=== PATIENT | female | born 1985 | race Caucasian/White ===

== ENCOUNTER 2019-09-22 12:39 | Emergency (ER) | payer BC, SELFPAY ==
[2019-09-22] MEDS ORDERED: ONDANSETRON 4 MG/2 ML VIAL ONE ×2 (13:30→15:47)
[2019-09-22] MEDS ORDERED: NA CHLORIDE 0.9% 1,000 ML ONE (13:30)
[2019-09-22] MEDS ORDERED: MORPHINE 4 MG/ML SYR ONE (13:30)
[2019-09-22 13:47] LABS: Absolute Lymphocytes (CBC) 1.2 K/uL (0.7-4.9); Basophils % 0.5 % (0-1.3); Hematocrit 41.6 % (36.0-45.0); MPV 9.7 fL (7.6-11.3); RBC Red Blood Cell Count 4.33 M/uL (3.86-4.86)
[2019-09-22 14:05] LABS: Albumin 3.9 g/dL (3.4-5.0); Bilirubin Direct 0.1 mg/dL (0-0.2); Bilirubin Total 0.3 mg/dL (0.2-1.0); Potassium 3.6 mmol/L (3.5-5.1); Protein, Total 7.5 g/dL (6.4-8.2)
--- NOTE | 2019-09-22 16:08 | RAD REPORT ---
EXAM DESCRIPTION: US - Abdomen Exam Limited - 09/22/2019 2:30 pm CLINICAL HISTORY: ABD PAIN COMPARISON: CTSTONE PROTOCOL dated 03/31/2013 FINDINGS: No gallstones, sludge or other abnormalities within the gallbladder lumen. There is no wal l thickening or pericholecystic fluid. No common duct stone or biliary tree dilatation identified. IMPRESSION: Normal gallbladder and biliary tree ultrasound.
[2019-09-22 16:35] LABS: Urine Blood NEGATIVE (NEG); Urine Glucose NEGATIVE (NEG); Urine Protein NEGATIVE (NEG); Urine Specific Gravity 1.025 (1.005-1.030)
--- NOTE | 2019-09-22 16:45 | RAD REPORT ---
EXAM DESCRIPTION: CT - Abdomen Pelvis W Contrast - 09/22/2019 4:19 pm CLINICAL HISTORY: ABD PAIN, vomiting, hematemesis COMPARISON: None. TECHNIQUE: Biphasic, helical CT imaging of the abdomen and pelvis was performed following 100 ml non -ionic IV contrast. No oral contrast given. All CT scans are performed using dose optimization technique as appropriate and may include automated exposure control or mA/KV adjustment according to patient size. FINDINGS: No suspicious findings in the lung bases. Liver shows diffuse fatty infiltration. No focal liver lesions seen. Spleen and pancreas without susp icious finding. Gallbladder and biliary tree are also without suspicious finding. Symmetric renal function is seen with no hydronephrosis or suspicious renal mass. No pyelonephritis o r acute parenchymal process. No bladder abnormalities. No adrenal abnormalities. Uterus and ovaries s how no suspicious findings. No gastric dilatation or gastric wall thickening. No small bowel abnormality. The appendix is normal. No acute colon process seen. No free air or pneumatosis. Trace free fluid is seen in the dependent portion of the pelvis. This i s within physiologic limits. No hernia, mass or bulky lymphadenopathy. No suspicious bony findings. IMPRESSION: Contrast enhanced CT abdomen and pelvis imaging shows no acute finding. Fatty infiltration of the liver.
--- NOTE | 2019-09-22 16:59 | ER ---
Nurse's Notes [facility] [place] Name: Clarissa Prince Age: 34 yrs Sex: Female : 1985 Arrival Date: 09/22/2019 Time: 12:40 Bed 3 Private MD: Diagnosis: Upper abdominal pain, unspecified;Nausea and vomiting Presentation: 09/22 12:54 Presenting complaint: Patient states: "At first it was regular throw up and then it was sv a mouth full of blood. I've always had stomach pain (points to the RUQ)". Transition of care: patient was not received from another setting of care. Onset of symptoms was September 22, 2019. Risk Assessment: Do you want to hurt yourself or someone else? Patient reports no desire to harm self or others. Care prior to arrival: None. 12:54 Method Of Arrival: Ambulatory sv 12:54 Acuity: ANNE-MARIE 2 sv 13:30 Initial Sepsis Screen: Does the patient meet any 2 criteria? No. Patient's initial hb sepsis screen is negative. Does the patient have a suspected source of infection? No. Patient's initial sepsis screen is negative. HAT MENDER: 15:49 LMP 09/04/2019 hb Historical: - Allergies: 12:55 No Known Allergies; sv - PMHx: 12:55 None; sv - PSHx: 12:55 None; sv - Immunization history:: Flu vaccine is not up to date. - Social history:: Smoking status: Patient/guardian denies using tobacco, Patient uses alcohol, on a daily basis. 1-2 drinks of liquor or beer. - Ebola Screening: : No symptoms or risks identified at this time. Screenin:52 Abuse screen: Denies threats or abuse. Denies injuries from another. Nutritional hb screening: No deficits noted. Tuberculosis screening: No symptoms or risk factors identified. Fall Risk None identified. Assessment: 13:45 General: Appears in no apparent distress. Behavior is calm, cooperative. Pain: Pain hb currently is 6 out of 10 on a pain scale. Neuro: Level of Consciousness is awake, alert, obeys commands, Oriented to person, place, time, situation. Cardiovascular: Capillary refill < 3 seconds Patient's skin is warm and dry. Respiratory: Airway is patent Respiratory effort is even, unlabored, Respiratory pattern is regular, symmetrical, Breath sounds are clear bilaterally. GI: Abdomen is non-distended, Bowel sounds present X 4 quads. Abd is soft and non tender X 4 quads. Reports upper abdominal pain, nausea, vomiting. : No signs and/or symptoms were reported regarding the genitourinary system. EENT: No signs and/or symptoms were reported regarding the EENT system. Derm: Skin is pink, warm \\T\\ dry. Musculoskeletal: No signs and/or symptoms reported regarding the musculoskeletal system. 14:41 Reassessment: Patient appears in no apparent distress at this time. Patient and/or hb family updated on plan of care and expected duration. Pain level reassessed. Patient is alert, oriented x 3, equal unlabored respirations, skin warm/dry/pink. 15:35 Reassessment: Patient appears in no apparent distress at this time. Patient and/or hb family updated on plan of care and expected duration. Pain level reassessed. Patient is alert, oriented x 3, equal unlabored respirations, skin warm/dry/pink. 15:48 Reassessment: Pt c/o nausea, requesting medication. OVEN DRIER TENDER Charlotte notified, repeat Zofran hb administered as ordered. 16:30 Reassessment: Patient appears in no apparent distress at this time. Patient and/or hb family updated on plan of care and expected duration. Pain level reassessed. Patient is alert, oriented x 3, equal unlabored respirations, skin warm/dry/pink. Vital Signs: 12:56 BP 165 / 97; Pulse 117; Resp 18; Temp 96.5; Pulse Ox 100% ; Weight 83.91 kg; Height 5 sv ft. 1 in. (154.94 cm); Pain 0/10; 14:41 BP 150 / 105; Pulse 102; Resp 18; Pulse Ox 99% on R/A; Pain 3/10; hb 16:57 BP 150 / 93; Pulse 92; Resp 17; Pulse Ox 99% on R/A; hb 12:56 Body Mass Index 34.96 (83.91 kg, 154.94 cm) sv ED Course: 12:40 Patient arrived in ED. as 12:41 Charlotte Cortez [facility]-C [facility]. kb 12:41 Abena Barreto MD is Attending Physician. kb 12:55 Triage completed. sv 12:56 Arm band placed on. sv 13:21 Stewart, Marlene, RN is Primary Nurse. hb 13:30 Patient has correct armband on for positive identification. Placed in gown. Bed in low hb position. Call light in reach. Side rails up X 1. 13:38 Missed attempt(s): 20 gauge 22 gauge in right antecubital area. Bleeding controlled, hb band aid applied, catheter tip intact. 13:40 Initial lab(s) drawn, by al, sent to lab. hb 13:49 Inserted saline lock: 20 gauge in right antecubital area, using aseptic technique. em1 14:31 US Abdomen Limited In Process Unspecified. EDMS 16:[address] via wheelchair. nj 16:18 CT completed. Patient tolerated procedure well. Patient moved back from CT. nj 16:19 CT Abd/Pelvis - IV Contrast Only In Process Unspecified. EDMS 17:44 No provider procedures requiring assistance completed. IV discontinued, intact, hb bleeding controlled, No redness/swelling at site. Pressure dressing applied. Administered Medications: 13:50 Drug: Zofran 4 mg Route: IVP; Site: right antecubital; hb 14:43 Follow up: Response: No adverse reaction hb 13:51 Drug: morphine 4 mg Route: IVP; Site: right antecubital; hb 14:43 Follow up: Response: No adverse reaction hb 13:52 Drug: NS 0.9% 1000 ml Route: IV; Rate: 1000 ml; Site: right antecubital; hb 15:05 Follow up: Response: No adverse reaction; IV Status: Completed infusion; IV Intake: hb 100ml 15:47 Drug: Zofran 4 mg Route: IVP; Site: right antecubital; hb Intake: 15:05 IV: 100ml; Total: 100ml. hb Outcome: 16:58 Discharge ordered by . kb 17:44 Discharged to home ambulatory, with family. hb 17:44 Condition: stable 17:44 Discharge instructions given to patient, family, Instructed on discharge instructions, follow up and referral plans. medication usage, Demonstrated understanding of instructions, follow-up care, medications, Prescriptions given X 3. 17:44 Patient left the ED. hb Signatures: Dispatcher [employer] EDNE Charlotte Cortez, Renate Gregorio RN RN sv Martinez, Amelia as Martinez, Eric em1 Marlene Stewart, SHAYE RN Benedicto Hopkins Corrections: (The following items were deleted from the chart) 12:57 12:54 Acuity: ANNE-MARIE 3 sv sv 16:11 16:11 Patient moved to [place] via wheelchair. dong umana
--- NOTE | 2019-09-22 16:59 | EDPHYS ---
Physician Documentation [facility] [place], [place] Name: Clarissa Prince Age: 34 yrs Sex: Female : 1985 Arrival Date: 09/22/2019 Time: 12:40 Bed 3 Private MD: ED Physician Abena Barreto HPI: 09/22 15:00 This 34 yrs old Female presents to ER via Ambulatory with complaints of kb Vomiting, Abdominal Pain. 15:00 The patient presents with abdominal pain in the right upper quadrant. Onset: The kb symptoms/episode began/occurred this morning. The symptoms do not radiate. Associated signs and symptoms: Pertinent positives: nausea and vomiting, vomiting blood. The symptoms are described as constant. Modifying factors: The symptoms are alleviated by nothing, the symptoms are aggravated by nothing. Severity of pain: At its worst the pain was moderate in the emergency department the pain is unchanged. The patient has not experienced similar symptoms in the past. The patient has not recently seen a physician. Pt reports right upper abd pain since this morning. States she vomited 4 times, with blood in it the first 3 times. Reports no blood the last time she vomited. States she has had this multiple times in the past. PATIENT INTAKE REPRESENTATIVE: 15:49 LMP 09/04/2019 hb Historical: - Allergies: 12:55 No Known Allergies; sv - PMHx: 12:55 None; sv - PSHx: 12:55 None; sv - Immunization history:: Flu vaccine is not up to date. - Social history:: Smoking status: Patient/guardian denies using tobacco, Patient uses alcohol, on a daily basis. 1-2 drinks of liquor or beer. - Ebola Screening: : No symptoms or risks identified at this time. ROS: 14:59 Constitutional: Negative for fever, chills, and weight loss, ENT: Negative for injury, kb pain, and discharge, Neck: Negative for injury, pain, and swelling, Cardiovascular: Negative for chest pain, palpitations, and edema, Respiratory: Negative for shortness of breath, cough, wheezing, and pleuritic chest pain, Back: Negative for injury and pain, : Negative for injury, bleeding, discharge, and swelling, MS/Extremity: Negative for injury and deformity, Skin: Negative for injury, rash, and discoloration, Neuro: Negative for headache, weakness, numbness, tingling, and seizure. 14:59 Abdomen/GI: Positive for abdominal pain, nausea and vomiting, hematemesis. Exam: 14:59 Constitutional: This is a well developed, well nourished patient who is awake, alert, kb and in no acute distress. Head/Face: Normocephalic, atraumatic. ENT: Nares patent. No nasal discharge, no septal abnormalities noted. Tympanic membranes are normal and external auditory canals are clear. Oropharynx with no redness, swelling, or masses, exudates, or evidence of obstruction, uvula midline. Mucous membranes moist. Neck: Trachea midline, no thyromegaly or masses palpated, and no cervical lymphadenopathy. Supple, full range of motion without nuchal rigidity, or vertebral point tenderness. No Meningismus. Chest/axilla: Normal chest wall appearance and motion. Nontender with no deformity. No lesions are appreciated. Cardiovascular: Regular rate and rhythm with a normal S1 and S2. No gallops, murmurs, or rubs. Normal PMI, no JVD. No pulse deficits. Respiratory: Lungs have equal breath sounds bilaterally, clear to auscultation and percussion. No rales, rhonchi or wheezes noted. No increased work of breathing, no retractions or nasal flaring. Back: No spinal tenderness. No costovertebral tenderness. Full range of motion. Skin: Warm, dry with normal turgor. Normal color with no rashes, no lesions, and no evidence of cellulitis. MS/ Extremity: Pulses equal, no cyanosis. Neurovascular intact. Full, normal range of motion. Neuro: Awake and alert, GCS 15, oriented to person, place, time, and situation. Cranial nerves II-XII grossly intact. Motor strength 5/5 in all extremities. Sensory grossly intact. Cerebellar exam normal. Normal gait. 14:59 Abdomen/GI: Inspection: abdomen appears normal, Bowel sounds: normal, in all quadrants, Palpation: soft, in all quadrants, moderate abdominal tenderness, in the right upper quadrant. Vital Signs: 12:56 BP 165 / 97; Pulse 117; Resp 18; Temp 96.5; Pulse Ox 100% ; Weight 83.91 kg; Height 5 sv ft. 1 in. (154.94 cm); Pain 0/10; 14:41 BP 150 / 105; Pulse 102; Resp 18; Pulse Ox 99% on R/A; Pain 3/10; hb 16:57 BP 150 / 93; Pulse 92; Resp 17; Pulse Ox 99% on R/A; hb 12:56 Body Mass Index 34.96 (83.91 kg, 154.94 cm) sv MDM: 13:05 Patient medically screened. kb 15:00 Data reviewed: vital signs, nurses notes. Data interpreted: Pulse oximetry: on room air kb is 99 %. Interpretation: normal. 16:57 Counseling: I had a detailed discussion with the patient and/or guardian regarding: the kb historical points, exam findings, and any diagnostic results supporting the discharge/admit diagnosis, lab results, radiology results, the need for outpatient follow up, a family practitioner, a career placement specialist, to return to the emergency department if symptoms worsen or persist or if there are any questions or concerns that arise at home. 09/22 13:18 Order name: Basic Metabolic Panel; Complete Time: 14:06 kb 09/22 13:18 Order name: CBC with Diff; Complete Time: 14:00 kb 09/22 13:18 Order name: Hepatic Function; Complete Time: 14:06 kb 09/22 13:18 Order name: Lipase; Complete Time: 14:06 kb 09/22 15:44 Order name: Urine Dipstick--Ancillary (enter results); Complete Time: 16:36 bd 09/22 15:44 Order name: Urine --Ancillary (enter results); Complete Time: 16:36 bd 09/22 13:18 Order name: IV Saline Lock; Complete Time: 13:52 kb 09/22 13:18 Order name: Labs collected and sent; Complete Time: 13:43 kb 09/22 13:18 Order name: US Abdomen Limited; Complete Time: 16:13 kb 09/22 14:34 Order name: CT Abd/Pelvis - IV Contrast Only; Complete Time: 16:47 kb Administered Medications: 13:50 Drug: Zofran 4 mg Route: IVP; Site: right antecubital; hb 14:43 Follow up: Response: No adverse reaction hb 13:51 Drug: morphine 4 mg Route: IVP; Site: right antecubital; hb 14:43 Follow up: Response: No adverse reaction hb 13:52 Drug: NS 0.9% 1000 ml Route: IV; Rate: 1000 ml; Site: right antecubital; hb 15:05 Follow up: Response: No adverse reaction; IV Status: Completed infusion; IV Intake: hb 100ml 15:47 Drug: Zofran 4 mg Route: IVP; Site: right antecubital; hb Disposition: 17:55 Co-signature as Attending Physician, Abena Barreto MD. ma2 Disposition: 09/22/19 16:58 Discharged to Home. Impression: Upper abdominal pain, unspecified, Nausea and vomiting. - Condition is Stable. - Discharge Instructions: Nausea and Vomiting, Adult, [id number], Abdominal Pain, Adult, [id number]. - Prescriptions for Bentyl 20 mg Oral Tablet - take 1 tablet by ORAL route every 6 hours As needed; 20 tablet. Protonix 40 mg Oral Tablet - take 1 tablet by ORAL route once daily; 30 tablet. Zofran 4 mg Oral Tablet - take 1 tablet by ORAL route every 6 hours As needed; 20 tablet. - Medication Reconciliation Form, Thank You Letter, Antibiotic Education, Prescription Opioid Use form. - Follow up: Emergency Department; When: As needed; Reason: Worsening of condition. Follow up: Private Physician; When: 2 - 3 days; Reason: Recheck today's complaints, Continuance of care, Re-evaluation by your physician. Signatures: Dispatcher [employer] Charlotte Covarrubias FNP-C FNP-Renate Mclain, RN Marlene Walls RN RN hb Alzahri, Mohammad, MD MD ma2 Corrections: (The following items were deleted from the chart) 17:44 16:58 09/22/2019 16:58 Discharged to Home. Impression: Upper abdominal pain, hb unspecified; Nausea and vomiting. Condition is Stable. Forms are Medication Reconciliation Form, Thank You Letter, Antibiotic Education, Prescription Opioid Use. Follow up: Emergency Department; When: As needed; Reason: Worsening of condition. Follow up: Private Physician; When: 2 - 3 days; Reason: Recheck today's complaints, Continuance of care, Re-evaluation by your physician. kb
[2019-09-22 18:47] VITALS: O2SAT 99
[2019-09-22 18:48] VITALS: TEMP 96.5
[2019-09-22 18:50] VITALS: BP 150/93
== END 2019-09-22 17:44 | disposition home or self-care (01) ==
LOC: ER 12:39
DX: R10.10 Upper abdominal pain, unspecified (principal)
CPT/HCPCS: 96361; 85025; 80048; 36415; 81025; 80076; 81003; 83690; 74177; 76705; 96375; 96374; 99284; Q9967; J7030; J2405 ×2